=== PATIENT | male | born 1960 | race African-American/Black ===

== ENCOUNTER 2019-01-01 19:06 | Inpatient (IN) ==
[2019-01-01 20:39] LABS: Basophils % 0.5 % (0.0-0.8); Eosinophils # 0.1 10*3/uL (0.0-0.87); Eosinophils % 2.3 % (0.00-10.9); Hematocrit 39.4 VOL% (42.0-52.0); Hemoglobin 12.2 GM/DL (14.0-18.0); Immature Granulocytes % 0.3 %; Immature Granulocytes Absolute 0.02 #; Lymphocytes % 33.1 % (21.2-54.2); Mean Corpuscular Hemoglobin 28 PG (27-34); Mean Corpuscular Volume 91.6 FL (87-102); Mean Platelet Volume 10.7 FL (9.6-12.0); Monocytes # 0.6 10*3/uL (0.11-0.8); Monocytes % 9.8 % (1.7-12.7); Neutrophils # 3.3 10*3/uL (1.4-7.4); Platelet Count 174 T/CUMM (130-400); Red Cell Distribution Width 13.8 % (9.3-17.3); White Blood Count 6.1 T/CUMM (4-12)
[2019-01-01 20:48] LABS: PT Patient Result 10.9 SECS
[2019-01-01 21:14] LABS: Alanine Aminotransferase 18 U/L (16-61); Albumin 3.5 G/DL (3.4-5.0); Alkaline Phosphatase 96 U/L (45-117); Aspartate Amino Transferase 11 U/L (0-37); Blood Urea Nitrogen 20 MG/DL (7-18); Calcium 8.1 MG/DL (8.5-10.1); Glucose 80 MG/DL (74-106); Osmolality,Calculated 278.5 MOS/KG (273-304); Potassium 3.9 MMOL/L (3.5-5.1); Sodium 139 MMOL/L (136-145); Total Protein 7.2 G/DL (6.4-8.3)
[2019-01-01 21:58] LABS: Barbiturates Screen,Urine Negative (Negative); Benzodiazepines Screen,Urine Negative (Negative); Cannabinoid Screen,Urine Negative (Negative); Opiate Screen,Urine Negative (Negative); Phencyclidine Screen,Urine Negative (Negative)
[2019-01-01] MEDS ORDERED: ONDANSETRON 4 MG/2 ML VIAL IV PRN (22:01)
[2019-01-01] MEDS ORDERED: MORPHINE 4 MG/1 ML VIAL IV PRN (22:01)
[2019-01-01] MEDS ORDERED: DOCUSATE SODIUM 100 MG CAPSULE PO PRN (22:01)
[2019-01-01 22:02] LABS: Apearance,Urine CLEAR (Clear); Bilirubin,Urine Negative (Negative); Blood, Urine Negative (Negative); Glucose,Urine (UA) Negative (Negative); Ketones,Urine 20 mg/dL (Negative); Mucus,Urine Occasional /LPF (Occasional); Nitrite,Urine Negative (Negative); Protein,Urine Negative; RBC,Urine 1 /HPF (0-4); Urine Color Yellow (Yellow); Urine Specific Gravity 1.021 (1.001-1.035); WBC,Urine 1 /HPF (0-6)
[2019-01-01] MEDS ORDERED: KETOROLAC 15 MG/1 ML VIAL IV PRN (22:30)
[2019-01-02] MEDS: SODIUM CHLORIDE 0.9% 1,000 ML IV SCH ×3 (01:02→16:01)
[2019-01-02 05:43] LABS: Calcium 8.2 MG/DL (8.5-10.1); Osmolality,Calculated 277.5 MOS/KG (273-304); Potassium 3.7 MMOL/L (3.5-5.1)
[2019-01-02 07:13] LABS: Basophils % 0.5 % (0.0-0.8); Eosinophils # 0.1 10*3/uL (0.0-0.87); Eosinophils % 2.2 % (0.00-10.9); Hematocrit 41.2 VOL% (42.0-52.0); Immature Granulocytes % 1.1 %; Immature Granulocytes Absolute 0.06 #; Lymphocytes # 1.9 10*3/uL (1.4-4.0); Lymphocytes % 34.6 % (21.2-54.2); Mean Corpuscular HGB Conc 30.3 GM/DL (32-36); Mean Corpuscular Hemoglobin 29 PG (27-34); Mean Corpuscular Volume 95.2 FL (87-102); Mean Platelet Volume 12.1 FL (9.6-12.0); Monocytes # 0.7 10*3/uL (0.11-0.8); Monocytes % 12.2 % (1.7-12.7); Neutrophils # 2.8 10*3/uL (1.4-7.4); Neutrophils % 49.4 % (38.7-73.9); Platelet Count 141 T/CUMM (130-400); Red Blood Count 4.33 MC/CUMM (3.8-5.5); Red Cell Distribution Width 13.8 % (9.3-17.3); White Blood Count 5.6 T/CUMM (4-12)
[2019-01-02 07:14] LABS: Hemoglobin 12.5 GM/DL (14.0-18.0)
[2019-01-02] MEDS: PANTOPRAZOLE 40 MG VIAL IV SCH (08:30)
[2019-01-02] MEDS: ENOXAPARIN 40 MG/0.4 ML SYRINGE SUBCUT SCH (08:31)
[2019-01-02] MEDS: amLODIPine 5 MG TABLET PO SCH (08:31)
[2019-01-02] MEDS: LISINOPRIL 20 MG TABLET PO SCH (08:31)
[2019-01-02] MEDS ORDERED: MIRTAZAPINE 15 MG TABLET PO PRN (11:16)
[2019-01-02] MEDS ORDERED: traZODone 50 MG TABLET PO PRN (11:16)
[2019-01-02] MEDS: BENZTROPINE 1 MG TABLET PO SCH ×2 (11:49→21:39)
[2019-01-02] MEDS ORDERED: HALOPERIDOL 5 MG/ML AMP IM ONE (20:06)
[2019-01-02] MEDS ORDERED: HALOPERIDOL 5 MG/ML AMP ONE (20:08)
[2019-01-02] MEDS ORDERED: LORazepam 2 MG/1 ML VIAL ONE (20:11)
[2019-01-02] MEDS ORDERED: LORazepam 2 MG/1 ML VIAL IV ONE (20:15)
[2019-01-02] MEDS: DIVALPROEX 500 MG TABLET PO SCH (21:39)
[2019-01-02] MEDS: risperiDONE 1 MG TABLET PO SCH (21:39)
[2019-01-03] MEDS: SODIUM CHLORIDE 0.9% 1,000 ML IV SCH ×3 (00:01→15:28)
[2019-01-03 05:35] LABS: Basophils % 0.6 % (0.0-0.8); Eosinophils # 0.1 10*3/uL (0.0-0.87); Eosinophils % 1.1 % (0.00-10.9); Hematocrit 37.5 VOL% (42.0-52.0); Hemoglobin 11.7 GM/DL (14.0-18.0); Immature Granulocytes % 0.2 %; Immature Granulocytes Absolute 0.01 #; Lymphocytes # 1.9 10*3/uL (1.4-4.0); Lymphocytes % 35.9 % (21.2-54.2); Mean Corpuscular HGB Conc 31.2 GM/DL (32-36); Mean Corpuscular Hemoglobin 29 PG (27-34); Mean Corpuscular Volume 91.5 FL (87-102); Mean Platelet Volume 11.7 FL (9.6-12.0); Monocytes # 0.5 10*3/uL (0.11-0.8); Monocytes % 10.2 % (1.7-12.7); Neutrophils # 2.8 10*3/uL (1.4-7.4); Platelet Count 156 T/CUMM (130-400); Red Cell Distribution Width 13.5 % (9.3-17.3); White Blood Count 5.3 T/CUMM (4-12)
[2019-01-03 05:41] LABS: Calcium 7.8 MG/DL (8.5-10.1); Osmolality,Calculated 274.5 MOS/KG (273-304)
[2019-01-03 07:35] VITALS: BP 151/103
[2019-01-03] MEDS: amLODIPine 5 MG TABLET PO SCH (08:55)
[2019-01-03] MEDS: PANTOPRAZOLE 40 MG VIAL IV SCH (08:55)
[2019-01-03] MEDS: risperiDONE 1 MG TABLET PO SCH ×2 (08:55→20:56)
[2019-01-03] MEDS: BENZTROPINE 1 MG TABLET PO SCH ×2 (08:55→20:56)
[2019-01-03] MEDS: LISINOPRIL 20 MG TABLET PO SCH (08:55)
[2019-01-03] MEDS: MIRTAZAPINE 15 MG TABLET PO SCH ×2 (09:35→09:38)
[2019-01-03] MEDS: ENOXAPARIN 40 MG/0.4 ML SYRINGE SUBCUT SCH (09:35)
[2019-01-03] MEDS ORDERED: cloNIDine 0.1 MG TABLET PO PRN (15:40)
[2019-01-03] MEDS ORDERED: NIFEdipine 10 MG CAPSULE PO PRN (15:40)
[2019-01-03] MEDS ORDERED: HALOPERIDOL 5 MG/ML AMP IM PRN (15:53)
[2019-01-03] MEDS ORDERED: HALOPERIDOL 5 MG/ML AMP ONE (15:55)
[2019-01-03] MEDS: DIVALPROEX 500 MG TABLET PO SCH (20:56)
[2019-01-03] MEDS ORDERED: LORazepam 2 MG/1 ML VIAL IV ONE (22:38)
[2019-01-04] MEDS ORDERED: PANTOPRAZOLE 40 MG TABLET PO SCH (09:00)
== END 2019-01-03 23:12 | DRG 812 ==
LOC: N.ED 19:06 → N.EDINP 23:53 → N.CC 01-02 00:20
PROVIDERS: ADMIT Internal Medicine; ATTEND Internal Medicine

== ENCOUNTER 2019-04-19 22:09 | Observation (INO) ==
[2019-04-19] MEDS ORDERED: SODIUM CHLORIDE 0.9% 1,000 ML IV STA (22:29)
[2019-04-19 22:34] LABS: Basophils % 0.4 % (0.0-0.8); Eosinophils % 0.1 % (0.00-10.9); Hematocrit 39.8 VOL% (42.0-52.0); Hemoglobin 12.4 GM/DL (14.0-18.0); Immature Granulocytes % 0.9 %; Immature Granulocytes Absolute 0.06 #; Lymphocytes % 15.3 % (21.2-54.2); Mean Corpuscular HGB Conc 31.2 GM/DL (32-36); Mean Corpuscular Volume 91.5 FL (87-102); Monocytes % 9.1 % (1.7-12.7); Neutrophils % 74.2 % (38.7-73.9); Platelet Count 284 T/CUMM (130-400); Red Blood Count 4.35 MC/CUMM (3.8-5.5); Red Cell Distribution Width 14.8 % (9.3-17.3); White Blood Count 6.8 T/CUMM (4-12)
[2019-04-19 22:45] LABS: PT Patient Result 10.6 SECS
[2019-04-19 23:03] LABS: Apearance,Urine CLEAR (Clear); Bacteria,Urine Occasional /HPF (Few); Bilirubin,Urine Negative (Negative); Blood, Urine Negative (Negative); Glucose,Urine (UA) Negative (Negative); Ketones,Urine 20 mg/dL (Negative); Mucus,Urine Occasional /LPF (Occasional); Nitrite,Urine Negative (Negative); Protein,Urine Negative; RBC,Urine <1 /HPF (0-4); Urine Color Straw (Yellow); Urine Specific Gravity 1.012 (1.001-1.035); Urine Urobilinogen < 2.0 EU/DL (0.2-1.0); WBC,Urine <1 /HPF (0-6)
[2019-04-19 23:11] LABS: Alanine Aminotransferase 36 U/L (16-61); Albumin 3.7 G/DL (3.4-5.0); Alkaline Phosphatase 99 U/L (45-117); Aspartate Amino Transferase 30 U/L (0-37); Bilirubin,Total < 0.39 MG/DL (0.2-1.0); Blood Urea Nitrogen 8 MG/DL (7-18); Calcium 8.9 MG/DL (8.5-10.1); Glucose 120 MG/DL (74-106); Total Protein 8.1 G/DL (6.4-8.3)
[2019-04-19 23:30] LABS: Barbiturates Screen,Urine Negative (Negative); Benzodiazepines Screen,Urine Negative (Negative); Cannabinoid Screen,Urine Negative (Negative); Opiate Screen,Urine Negative (Negative); Phencyclidine Screen,Urine Negative (Negative)
[2019-04-20] MEDS ORDERED: ONDANSETRON 4 MG/2 ML VIAL IV PRN (01:41)
[2019-04-20 02:05] LABS: Basophils % 0.4 % (0.0-0.8); Eosinophils % 0.1 % (0.00-10.9); Hematocrit 39.5 VOL% (42.0-52.0); Hemoglobin 12.3 GM/DL (14.0-18.0); Immature Granulocytes % 0.7 %; Immature Granulocytes Absolute 0.06 #; Lymphocytes # 1.7 10*3/uL (1.4-4.0); Lymphocytes % 21.1 % (21.2-54.2); Mean Corpuscular HGB Conc 31.1 GM/DL (32-36); Mean Corpuscular Volume 90.8 FL (87-102); Mean Platelet Volume 10.1 FL (9.6-12.0); Monocytes % 11.1 % (1.7-12.7); Neutrophils % 66.6 % (38.7-73.9); Platelet Count 286 T/CUMM (130-400); Red Blood Count 4.35 MC/CUMM (3.8-5.5); Red Cell Distribution Width 14.9 % (9.3-17.3); White Blood Count 8.2 T/CUMM (4-12)
[2019-04-20 02:36] LABS: Calcium 8.8 MG/DL (8.5-10.1); Osmolality,Calculated 281.1 MOS/KG (273-304)
[2019-04-20] MEDS: SODIUM CHLORIDE 0.9% 1,000 ML IV SCH ×3 (06:10→17:05)
[2019-04-20] MEDS: LACTULOSE 20 GM/30 ML UDCUP PO SCH ×4 (06:10→23:26)
[2019-04-20] MEDS: ENOXAPARIN 40 MG/0.4 ML SYRINGE SUBCUT SCH (06:10)
[2019-04-20] MEDS: hydrALAZINE 20 MG/1 ML VIAL IV PRN (15:10)
[2019-04-20] MEDS: risperiDONE 1 MG TABLET PO SCH (20:31)
[2019-04-20] MEDS: BENZTROPINE 1 MG TABLET PO SCH (20:31)
[2019-04-20] MEDS ORDERED: DIVALPROEX 500 MG TABLET PO SCH (21:00)
[2019-04-21] MEDS: ENOXAPARIN 40 MG/0.4 ML SYRINGE SUBCUT SCH (01:23)
[2019-04-21] MEDS: SODIUM CHLORIDE 0.9% 1,000 ML IV SCH ×2 (01:56→09:16)
[2019-04-21] MEDS: LACTULOSE 20 GM/30 ML UDCUP PO SCH ×2 (05:48→13:22)
[2019-04-21] MEDS ORDERED: ACETAMINOPHEN 325 MG TABLET PO PRN (07:41)
[2019-04-21] MEDS: BENZTROPINE 1 MG TABLET PO SCH (08:02)
[2019-04-21] MEDS: risperiDONE 1 MG TABLET PO SCH (08:02)
[2019-04-21 09:39] VITALS: BP 157/102
[2019-04-21] MEDS: hydrALAZINE 20 MG/1 ML VIAL IV PRN (11:08)
== END 2019-04-21 15:59 | disposition designated cancer center or children's hospital (05) ==
LOC: EDUNIT# → EDBD → N.EDINP 22:09 → N.ED 22:09 → N.5E 04-20 01:25
PROVIDERS: ADMIT Internal Medicine; ATTEND Internal Medicine

== ENCOUNTER 2019-05-21 11:11 | Observation (INO) ==
[2019-05-21] MEDS ORDERED: ONDANSETRON 4 MG/2 ML VIAL IV STA ×2 (11:26→15:08)
[2019-05-21] MEDS ORDERED: ASPIRIN 325 MG TABLET PO STA (11:26)
[2019-05-21] MEDS ORDERED: METOPROLOL TARTRATE 5 MG/5 ML VIAL IV STA (11:26)
[2019-05-21] MEDS ORDERED: NITROGLYCERIN 2% OINT 1 INCH/GM PACK TOP STA (11:26)
[2019-05-21] MEDS ORDERED: MORPHINE 4 MG/1 ML VIAL IV STA (11:26)
[2019-05-21 12:53] LABS: Barbiturates Screen,Urine Negative (Negative); Benzodiazepines Screen,Urine Negative (Negative); Cannabinoid Screen,Urine Negative (Negative); Opiate Screen,Urine Negative (Negative); Phencyclidine Screen,Urine Negative (Negative)
[2019-05-21 13:00] LABS: Basophils % 0.3 % (0.0-0.8); Eosinophils % 0.1 % (0.00-10.9); Hemoglobin 12.3 GM/DL (14.0-18.0); Immature Granulocytes % 0.6 %; Immature Granulocytes Absolute 0.07 #; Lymphocytes % 8.9 % (21.2-54.2); Mean Corpuscular HGB Conc 31.5 GM/DL (32-36); Mean Corpuscular Volume 91.5 FL (87-102); Mean Platelet Volume 10.1 FL (9.6-12.0); Monocytes % 7.5 % (1.7-12.7); Neutrophils % 82.6 % (38.7-73.9); Platelet Count 297 T/CUMM (130-400); Red Blood Count 4.26 MC/CUMM (3.8-5.5); Red Cell Distribution Width 13.4 % (9.3-17.3)
[2019-05-21 13:17] LABS: Albumin 3.8 G/DL (3.4-5.0); Bilirubin,Total 1.2 MG/DL (0.2-1.0); Calcium 8.7 MG/DL (8.5-10.1); Osmolality,Calculated 282.4 MOS/KG (273-304); Total Protein 7.6 G/DL (6.4-8.3)
[2019-05-21 13:38] LABS: INR 0.9; PT Patient Result 10.2 SECS; Partial Thromboplastin Time 23.5 SECS (0-40)
[2019-05-21] MEDS ORDERED: ALUM/MAG/SIMETH/LIDO VISC 1:1 30 ML BOTTLE PO STA (15:48)
[2019-05-21] MEDS ORDERED: ACETAMINOPHEN 325 MG TABLET PO PRN (16:56)
[2019-05-21] MEDS: SODIUM CHLORIDE 0.9% 1,000 ML IV SCH (18:05)
[2019-05-21] MEDS: NICOTINE 21 MG/24 HR PATCH TRANSDERM SCH (18:55)
[2019-05-21] MEDS: MORPHINE 4 MG/1 ML VIAL IV PRN (18:59)
[2019-05-21] MEDS: ENOXAPARIN 40 MG/0.4 ML SYRINGE SUBCUT SCH (18:59)
[2019-05-21] MEDS: DIVALPROEX 500 MG TABLET PO SCH (22:18)
[2019-05-21] MEDS: risperiDONE 1 MG TABLET PO SCH (22:19)
[2019-05-21] MEDS: MIRTAZAPINE 30 MG TABLET PO SCH (22:22)
[2019-05-21] MEDS: BENZTROPINE 1 MG TABLET PO SCH (22:22)
[2019-05-22] MEDS: MORPHINE 4 MG/1 ML VIAL IV PRN ×2 (01:29→09:31)
[2019-05-22] MEDS: SODIUM CHLORIDE 0.9% 1,000 ML IV SCH (04:18)
[2019-05-22 05:12] LABS: Calcium 8.7 MG/DL (8.5-10.1); Osmolality,Calculated 279.5 MOS/KG (273-304)
[2019-05-22] MEDS ORDERED: amLODIPine 5 MG TABLET PO SCH (09:00)
[2019-05-22] MEDS ORDERED: LISINOPRIL 20 MG TABLET PO SCH (09:00)
[2019-05-22] MEDS: risperiDONE 1 MG TABLET PO SCH ×2 (09:26→20:38)
[2019-05-22] MEDS: BENZTROPINE 1 MG TABLET PO SCH ×2 (09:26→20:38)
[2019-05-22] MEDS: NICOTINE 21 MG/24 HR PATCH TRANSDERM SCH (09:36)
[2019-05-22] MEDS ORDERED: MAGNESIUM CITRATE 300 ML BOTTLE PO ONE (14:00)
[2019-05-22] MEDS ORDERED: BISACODYL 10 MG SUPP RECTAL ONE (16:15)
[2019-05-22] MEDS ORDERED: MAGNESIUM CITRATE 300 ML BOTTLE PO PRN (18:14)
[2019-05-22] MEDS: DIVALPROEX 500 MG TABLET PO SCH (20:38)
[2019-05-22] MEDS: ENOXAPARIN 40 MG/0.4 ML SYRINGE SUBCUT SCH (20:42)
[2019-05-22] MEDS: MIRTAZAPINE 30 MG TABLET PO SCH (20:42)
[2019-05-22 20:44] VITALS: BP 138/94
== END 2019-05-22 21:07 | disposition left against medical advice (07) ==
LOC: EDBD → EDSEX → EDUNIT# → N.ED 11:11 → N.EDINP 11:11 → N.2E 17:35
PROVIDERS: ADMIT Internal Medicine Geriatric Medicine; ATTEND Internal Medicine Geriatric Medicine

== ENCOUNTER 2020-10-04 00:22 | Observation (INO) ==
[2020-10-04] MEDS ORDERED: SODIUM CHLORIDE 0.9% 1,000 ML IV STA (00:43)
[2020-10-04 00:52] LABS: Basophils % 0.2 % (0.0-0.8); Eosinophils % 0.4 % (0.00-10.9); Hematocrit 37.4 VOL% (42.0-52.0); Hemoglobin 12.4 GM/DL (14.0-18.0); Immature Granulocytes % 0.6 %; Immature Granulocytes Absolute 0.05 #; Lymphocytes # 1.2 10*3/uL (1.4-4.0); Lymphocytes % 14.2 % (21.2-54.2); Mean Corpuscular HGB Conc 33.2 GM/DL (32-36); Mean Corpuscular Volume 88.8 FL (87-102); Mean Platelet Volume 10.4 FL (9.6-12.0); Neutrophils % 77.6 % (38.7-73.9); Platelet Count 248 T/CUMM (130-400); Red Blood Count 4.21 MC/CUMM (3.8-5.5); White Blood Count 8.2 T/CUMM (4-12)
[2020-10-04 01:07] LABS: Alanine Aminotransferase 25 U/L (16-61); Albumin 3.6 G/DL (3.4-5.0); Alkaline Phosphatase 109 U/L (45-117); Aspartate Amino Transferase 17 U/L (0-37); Bilirubin,Total < 0.39 MG/DL (0.2-1.0); Blood Urea Nitrogen 12 MG/DL (7-18); Calcium 8.7 MG/DL (8.5-10.1); Estimated Glom Filtration Rate 102 ML/MIN; Glucose 123 MG/DL (74-106); Osmolality,Calculated 288.7 MOS/KG (273-304); Total Protein 7.3 G/DL (6.4-8.3)
[2020-10-04 01:10] LABS: ABG Base Excess -5.1 MMOL/L (-2.5-2.5); ABG HCO3 20.2 MMOL/L (20-26); ABG PCO2 31.1 MM HG (35-48); ABG PH 7.389 (7.35-7.45); ABG TCO2 16.6 MMOL/L (23-27); Allen Test Positive; Pt O2 Delivery Device Room Air
[2020-10-04] MEDS ORDERED: LORazepam 2 MG/1 ML VIAL IV STA ×2 (01:28→01:36)
[2020-10-04] MEDS ORDERED: LORazepam 2 MG/1 ML VIAL ONE (01:30)
[2020-10-04 01:42] LABS: Bacteria,Urine Occasional /HPF (Few); Bilirubin,Urine Negative (Negative); Blood, Urine Negative (Negative); Glucose,Urine (UA) Negative (Negative); Granular Casts,Urine 1 /LPF (0-1); Hyaline Casts,Urine 1 /LPF (0-3); Ketones,Urine 20 mg/dL (Negative); Mucus,Urine Occasional /LPF (Occasional); Nitrite,Urine Negative (Negative); Protein,Urine Negative; RBC,Urine 4 /HPF (0-4); Urine Appearance CLEAR (Clear); Urine Color Yellow (Yellow); Urine Specific Gravity 1.012 (1.001-1.035); WBC,Urine 1 /HPF (0-6)
[2020-10-04 02:16] LABS: Barbiturates Screen,Urine Negative (Negative); Benzodiazepines Screen,Urine Negative (Negative); Cannabinoid Screen,Urine Positive (Negative); Opiate Screen,Urine Negative (Negative); Phencyclidine Screen,Urine Negative (Negative)
[2020-10-04] MEDS ORDERED: GLUCAGON 1 MG VIAL IM PRN (09:55)
[2020-10-04] MEDS ORDERED: ACETAMINOPHEN 325 MG TABLET PO PRN (09:55)
[2020-10-04] MEDS ORDERED: DEXTROSE 50% 25 GM/50 ML VIAL IV PRN (09:55)
[2020-10-04] MEDS ORDERED: ONDANSETRON 4 MG/2 ML VIAL IV PRN (09:55)
[2020-10-04 11:11] LABS: Thyroid Stimulating Hormone 0.365 uIU/ml (0.358-3.74)
[2020-10-04] MEDS: ENOXAPARIN 40 MG/0.4 ML SYRINGE SUBCUT SCH (11:35)
[2020-10-04] MEDS: SODIUM CHLORIDE 0.9% 1,000 ML IV SCH ×2 (11:35→20:32)
[2020-10-05 05:35] LABS: Basophils % 0.7 % (0.0-0.8); Eosinophils # 0.1 10*3/uL (0.0-0.87); Eosinophils % 1.1 % (0.00-10.9); Hematocrit 33.9 VOL% (42.0-52.0); Hemoglobin 11.1 GM/DL (14.0-18.0); Immature Granulocytes % 0.2 %; Immature Granulocytes Absolute 0.01 #; Lymphocytes # 1.9 10*3/uL (1.4-4.0); Lymphocytes % 43.5 % (21.2-54.2); Mean Corpuscular HGB Conc 32.7 GM/DL (32-36); Mean Corpuscular Volume 88.5 FL (87-102); Mean Platelet Volume 10.8 FL (9.6-12.0); Monocytes % 13.6 % (1.7-12.7); Neutrophils % 40.9 % (38.7-73.9); Platelet Count 189 T/CUMM (130-400); Red Blood Count 3.83 MC/CUMM (3.8-5.5); Red Cell Distribution Width 14.4 % (9.3-17.3); White Blood Count 4.4 T/CUMM (4-12)
[2020-10-05 05:44] LABS: Calcium 7.9 MG/DL (8.5-10.1); Osmolality,Calculated 277.4 MOS/KG (273-304)
[2020-10-05] MEDS: SODIUM CHLORIDE 0.9% 1,000 ML IV SCH ×2 (07:33→17:57)
[2020-10-05] MEDS: ENOXAPARIN 40 MG/0.4 ML SYRINGE SUBCUT SCH (09:32)
[2020-10-05] MEDS: POTASSIUM CHLORIDE 20 MEQ TABLET PO PRN ×4 (09:32→15:37)
[2020-10-05] MEDS: lisinopriL 20 MG TABLET PO SCH (13:11)
[2020-10-05] MEDS: risperiDONE 1 MG TABLET PO SCH ×2 (13:11→21:04)
[2020-10-05] MEDS: amLODIPine 10 MG TABLET PO SCH (13:11)
[2020-10-05] MEDS: BENZTROPINE 1 MG TABLET PO SCH ×2 (13:13→21:04)
[2020-10-05] MEDS: FLUoxetine 10 MG CAPSULE PO SCH (21:03)
[2020-10-05] MEDS: DIVALPROEX 500 MG TABLET PO SCH (21:04)
[2020-10-06] MEDS: risperiDONE 1 MG TABLET PO SCH ×2 (08:39→21:12)
[2020-10-06] MEDS: POTASSIUM CHLORIDE 20 MEQ TABLET PO PRN (08:40)
[2020-10-06] MEDS: BENZTROPINE 1 MG TABLET PO SCH ×2 (08:40→21:12)
[2020-10-06] MEDS: lisinopriL 20 MG TABLET PO SCH (08:40)
[2020-10-06] MEDS: amLODIPine 10 MG TABLET PO SCH (08:40)
[2020-10-06] MEDS: ENOXAPARIN 40 MG/0.4 ML SYRINGE SUBCUT SCH (09:58)
[2020-10-06] MEDS: DIVALPROEX 500 MG TABLET PO SCH (21:12)
[2020-10-06] MEDS: FLUoxetine 10 MG CAPSULE PO SCH (21:12)
[2020-10-07 07:50] VITALS: BP 142/85
[2020-10-07] MEDS: risperiDONE 1 MG TABLET PO SCH (09:15)
[2020-10-07] MEDS: lisinopriL 20 MG TABLET PO SCH (09:15)
[2020-10-07] MEDS: BENZTROPINE 1 MG TABLET PO SCH (09:16)
[2020-10-07] MEDS: amLODIPine 10 MG TABLET PO SCH (09:16)
[2020-10-07] MEDS: ENOXAPARIN 40 MG/0.4 ML SYRINGE SUBCUT SCH (09:58)
== END 2020-10-07 12:31 | disposition home or self-care (01) ==
LOC: EDBD → EDUNIT# → N.ED 00:22 → N.EDINP 00:22 → SUATTDRO 09:55 → N.EDINP 11:12 → N.TELES 11:20
PROVIDERS: ADMIT Family Medicine; ATTEND Internal Medicine